=== PATIENT | male | born 1990 | race African-American/Black ===

== ENCOUNTER 2018-05-10 00:17 | Emergency (ER) | payer SELFPAY ==
[2018-05-10] MEDS ORDERED: LIDOCAINE 1% INJ-PF (10 MG/ML) 30 ML SDV INJ ONE (03:14)
[2018-05-10] MEDS ORDERED: SULFAMETHOXAZOLE/TRIMETHOPRIM 800-160 MG TABLET PO ONE (03:14)
[2018-05-10] MEDS ORDERED: CEPHALEXIN 500 MG CAPSULE PO ONE (03:14)
[2018-05-10] MEDS ORDERED: HYDROCODONE/ACETAMINOPHEN 5-325 MG TABLET PO ONE (03:14)
--- NOTE | 2018-05-10 03:19 | ER Document Report ---
ED General - General Chief Complaint: Abscess Stated Complaint: ABSCESS Time Seen by Provider: 05/10/18 02:34 Mode of Arrival: Ambulatory Information source: Patient TRAVEL OUTSIDE OF THE [place] IN LAST 30 DAYS: No - HPI Patient complains to provider of: Left breast abscess Onset: Other - Past couple of days Onset/Duration: Gradual Quality of pain: Sharp Severity: Moderate Context: History of infections in the same spot in the past Associated symptoms: denies: Chills, Fever Exacerbated by: Denies Relieved by: Denies Similar symptoms previously: No Recently seen / treated by doctor: No - Related Data Allergies/Adverse Reactions: No Known Drug Allergies Allergy (Verified 05/10/18 00:21) Past Medical History - General Information source: Patient - Social History Smoking Status: Current Every Day Smoker Family History: Reviewed & Not Pertinent, Other - History of seizures Patient has suicidal ideation: No Patient has homicidal ideation: No Renal/ Medical History: Denies: Hx Peritoneal Dialysis Review of Systems - Review of Systems Notes: Constitutional: No fevers. No chills. EENT: No eye redness. No eye pain. No ear pain. No sore throat. Cardiovascular: No chest pain. No palpitations. Respiratory: No cough. No shortness of breath. No respiratory distress. Gastrointestinal: No abdominal pain. No nausea, vomiting, or diarrhea. Genitourinary: Atraumatic. No lesions. No pain. No discharge. Musculoskeletal: Atraumatic. No swelling. No deformities. Skin: Abscess left side of chest Lymphatic: No swollen lymph nodes. Neurologic: No headache. No syncope. Psychiatric: No suicidal or homicidal ideation. Physical Exam - Vital signs Vitals: Temp Pulse Resp BP Pulse Ox 99.1 F 87 20 130/72 H 99 05/10/18 00:24 05/10/18 00:24 05/10/18 00:24 05/10/18 00:24 05/10/18 00:24 - Notes Notes: General: Well-developed, well-nourished. In no acute distress. Non-toxic appearing. Cardiac: Well-perfused. Regular rate and rhythm. No murmurs, rubs, or gallops. Pulmonary: No respiratory distress. No cyanosis. Bilateral lung fiels are clear to auscultation. Abdominal: Non-distended. Non-rigid. Bowels sounds are present in all four quadrants. No guarding or rebound. HEENT: Head is atraumatic. Conjunctivae not reddened. No tearing. PERRL. EOMI. Orbits atraumatic. No periorbital swelling or erythema. Oropharynx is without erythema, swelling, or exudates. Neck: Supple. No adenopathy. No meningismus. Dermatologic: Warm with good turgor. No rash. Atraumatic. Chest: Atraumatic. There is a semi-fluctuant abscess with local cellulitis medial to the left nipple on the chest. Musculoskeletal: Moves all extremities well. No range of motion deficits. no muscular or joint tenderness. No paraspinal muscle tenderness. no midline spinal tenderness or step-off. Genitourinary: Examination deferred Neurologic: No gross neurologic deficits. Psychiatric: Normal mood. Course - Re-evaluation Re-evalutation: 05/10/18 03:18 She will need incision and drainage. Orders placed for antibiotics, pain medicine, and set up for incision and drainage. - Vital Signs Vital signs: Temp Pulse Resp BP Pulse Ox 99.1 F 87 20 130/72 H 99 05/10/18 00:24 05/10/18 00:24 05/10/18 00:24 05/10/18 00:24 05/10/18 00:24 Procedures - Incision and Drainage Left Chest Type: Simple Anesthetic type: 1% Lidocaine mL's of anesthetic: 4 Blade size: 11 I&D procedure: Chlorprep applied Incision Method: Incision made by scalpel Amount/type of drainage: 4 ml-bloody purulent Notes: 05/10/18 04:09 Due to the small area, no packing gauze was used. Dressed with the gauze. Tolerated well by patient Discharge - Discharge Clinical Impression: Chest wall abscess Condition: Good Disposition: HOME, SELF-CARE Instructions: Abscess ([facility]), Cephalexin ([facility]), Trimethoprim-Sulfa ([facility]), Oral Narcotic Medication ([facility]) Additional Instructions: Please see your doctor or return to the ER for recheck in 2 days. If symptoms are significantly worse return sooner. Prescriptions: Hydrocodone/Acetaminophen [Reno 5-325 mg Tablet] 1 tab PO Q6HP PRN #10 tablet PRN Reason: Cephalexin Monohydrate [Keflex 500 mg Capsule] 500 mg PO Q6H 5 Days #40 capsule Sulfamethoxazole/Trimethoprim [Bactrim Ds Tablet] 1 each PO BID 10 Days #20 tablet Referrals: [facility] [Provider Group] - Follow up as needed
[2018-05-10 04:30] VITALS: BP 148/92
== END 2018-05-10 04:29 | disposition home or self-care (01) ==
LOC: ER 00:17
PROC: 0H95XZZ Drainage of Chest Skin, External Approach (ICD-10-PCS; principal; 2018-05-10)
DX: L02.213 Cutaneous abscess of chest wall (principal); N61.1 Abscess of the breast and nipple; F17.200 Nicotine dependence, unspecified, uncomplicated
CPT/HCPCS: 99283; 10060; J3490

== ENCOUNTER 2018-06-03 00:22 | Emergency (ER) | payer SELFPAY ==
[2018-06-03] MEDS ORDERED: OXYCODONE-ACETAMINOPHEN 5-325 MG TABLET PO ONE (02:51)
[2018-06-03] MEDS ORDERED: LIDOCAINE 1% INJ-PF (10 MG/ML) 30 ML SDV INJ ONE (02:51)
[2018-06-03] MEDS ORDERED: PROMETHAZINE HCL 25 MG TABLET PO ONE (02:51)
--- NOTE | 2018-06-03 02:52 | ER Document Report ---
ED Skin Rash/Insect Bite/Abscs - General Chief Complaint: ABCESS Stated Complaint: ABSCESS Time Seen by Provider: 06/03/18 02:45 Notes: Patient is a 27-year-old male that comes to the emergency department for chief complaint of infected area/abscess over the left mid chest, he states he has had this twice in the past, recently 3 weeks ago. It is always in the same location. He denies fever chills, nausea or vomiting and he does not take any daily medications, denies history of diabetes. He smokes, denies recreational drugs. TRAVEL OUTSIDE OF THE [place] IN LAST 30 DAYS: No - Related Data Allergies/Adverse Reactions: No Known Drug Allergies Allergy (Verified 06/03/18 00:27) Past Medical History - General Information source: Patient - Social History Smoking Status: Current Every Day Smoker Frequency of alcohol use: Occasional Drug Abuse: None Lives with: Family Family History: Reviewed & Not Pertinent, Other - History of seizures Renal/ Medical History: Denies: Hx Peritoneal Dialysis - Immunizations Immunizations up to date: Yes Hx Diphtheria, Pertussis, Tetanus Vaccination: Yes Review of Systems - Review of Systems Constitutional: No symptoms reported EENT: No symptoms reported Cardiovascular: No symptoms reported Respiratory: No symptoms reported Gastrointestinal: No symptoms reported Genitourinary: No symptoms reported Male Genitourinary: No symptoms reported Musculoskeletal: No symptoms reported Skin: See HPI Hematologic/Lymphatic: No symptoms reported Neurological/Psychological: No symptoms reported Physical Exam - Vital signs Vitals: Temp Pulse Resp BP Pulse Ox 97.5 F 52 L 14 135/67 H 100 06/03/18 05:30 06/03/18 05:30 06/03/18 05:30 06/03/18 05:30 06/03/18 05:30 - Notes Notes: GENERAL: Alert, interacts well. No acute distress. HEAD: Normocephalic, atraumatic. EYES: Pupils equal, round, and reactive to light. Extraocular movements intact. ENT: Oral mucosa moist, tongue midline. Oropharynx unremarkable. Airway patent. Nares patent, no nasal septal hematoma, TM's intact. NECK: Full range of motion. Supple. Trachea midline. LUNGS: Clear to auscultation bilaterally, no wheezes, rales, or rhonchi. No respiratory distress. HEART: Regular rate and rhythm. No murmur ABDOMEN: Soft, non-tender. Non-distended. Bowel sounds present in all 4 quadrants. GENITOURINARY: Deferred EXTREMITIES: Moves all 4 extremities spontaneously. No edema, normal radial and dorsalis pedis pulses bilaterally. No cyanosis. BACK: no cervical, thoracic, lumbar midline tenderness. No saddle anesthesia, normal distal neurovascular exam. NEUROLOGICAL: Alert and oriented x3. Normal speech. [cranial nerves II through XII grossly intact]. PSYCH: Normal affect, normal mood. SKIN: There is a large, circular, fluctuant, indurated area just medial and inferior to the left nipple at the left breast. No noted significant surrounding cellulitis. Otherwise unremarkable skin exam. Course - Re-evaluation Re-evalutation: Patient is afebrile, well-appearing, however he does have a large chest wall abscess. This was drained with large amount of purulent drainage. Appears to be abscess, not sebaceous cyst. Patient requests packing, because this was wide packing was placed. Placed on Bactrim. Recommended 2-day recheck because of the size. Discussed return precautions otherwise. Patient states satisfaction and agreement. - Vital Signs Vital signs: Temp Pulse Resp BP Pulse Ox 97.5 F 52 L 14 135/67 H 100 06/03/18 05:30 06/03/18 05:30 06/03/18 05:30 06/03/18 05:30 06/03/18 05:30 Procedures - Incision and Drainage Left chest wall Type: Single Anesthetic type: 1% Lidocaine mL's of anesthetic: 7 Blade size: 11 I&D procedure: Shurclens applied, Iodoform packing placed, Sterile dressing applied Incision Method: Incision made by scalpel Amount/type of drainage: Very large purulent drainage with small amount of bloody drainage Discharge - Discharge Clinical Impression: Chest wall abscess Condition: Stable Disposition: HOME, SELF-CARE Additional Instructions: The abscess has been drained and packed. I recommend that you return in 2 days to have the packing removed. If you do not return to the packing must be removed within 48 hours. Keep clean, clean with soap and water, keep absorbing dressing over the area. Take antibiotic as prescribed to completion. Return if you worsen in any way including developing or spreading redness, fever/chills, nausea/vomiting, or any other concerning or worsening symptoms. Prescriptions: Sulfamethoxazole/Trimethoprim [Bactrim Ds Tablet] 1 each PO BID #14 tablet Forms: Return to Work
[2018-06-03] MEDS ORDERED: HYDROCODONE/ACETAMINOPHEN 5-325 MG (6 TAB/ER DISP) PO PRN (04:37)
[2018-06-03 07:03] VITALS: BP 135/67
== END 2018-06-03 05:30 | disposition home or self-care (01) ==
LOC: ER 00:22
PROC: 0H95XZZ Drainage of Chest Skin, External Approach (ICD-10-PCS; principal; 2018-06-03)
DX: L02.213 Cutaneous abscess of chest wall (principal); F17.200 Nicotine dependence, unspecified, uncomplicated
CPT/HCPCS: 99283; 10060; A6266; J3490